=== PATIENT | female | born 1995 | race Caucasian/White ===

== ENCOUNTER 2017-06-30 11:04 | Emergency (ER) | payer BC ==
--- NOTE | 2017-06-30 12:31 | UC ---
Throat Pain/Nasal Lv HPI - HPI Summary HPI Summary: Pt c/o sore throat, bilateral ear pain, sinus pain, nasal congestion, and sore throat X 3-4 days. - History of Current Complaint Chief Complaint: UCRespiratory Stated Complaint: EAR ACHE/ST Time Seen by Provider: 06/30/17 12:15 Hx Obtained From: Patient Hx Last Menstrual Period: 06/26/17 ?: No Onset/Duration: Gradual Onset, Lasting Days - 4 Severity: Mild Associated Signs & Symptoms: Positive: Dysphagia, Sinus Discomfort - Epiglottits Risk Factors Epiglottis Risk Factors: Negative - Allergies/Home Medications Allergies/Adverse Reactions: Allergies Allergy/AdvReac Type Severity Reaction Status Date / Time Penicillins Allergy Rash Verified 06/30/17 12:16 Home Medications: Home Medications Cetirizine* [ZyrTEC 10 MG TAB*] 10 mg PO DAILY 06/30/17 [History Confirmed 06/30] Citalopram TAB* [Celexa TAB*] 40 mg PO DAILY 06/30/17 [History Confirmed ] LORazepam TAB(*) [Ativan 1 MG TAB (*)] 1 mg PO TID PRN 06/30/17 [History Confirmed 06/30/17] traZODone TAB* [Desyrel TAB*] 50 mg PO BEDTIME 06/30/17 [History Confirmed 06/30] PMH/Surg Hx/FS Hx/Imm Hx Previously Healthy: Yes - Surgical History Surgical History: Yes Surgery Procedure, Year, and Place: appendectomy. Ear tubes - Family History Known Family History: Positive: Cardiac Disease - Social History Occupation: Student Lives: With Family Alcohol Use: None Substance Use Type: None Smoking Status (MU): Never Smoked Tobacco Have You Smoked in the Last Year: No Review of Systems Constitutional: Fatigue Skin: Negative Eyes: Negative ENT: Sore Throat, Sinus Congestion Respiratory: Negative Cardiovascular: Negative Gastrointestinal: Negative Genitourinary: Negative Motor: Negative Neurovascular: Negative Musculoskeletal: Negative Neurological: Negative Psychological: Negative Is Patient Immunocompromised?: No All Other Systems Reviewed And Are Negative: Yes Physical Exam Triage Information Reviewed: Yes Appearance: Ill-Appearing Vital Signs: Initial Vital Signs Temp 98 F 06/30/17 12:13 Pulse 64 06/30/17 12:13 Resp 16 06/30/17 12:13 BP 119/71 06/30/17 12:13 Pulse Ox 100 06/30/17 12:13 Vital Signs Reviewed: Yes Eye Exam: Normal ENT Exam: Other ENT: Positive: Pharyngeal erythema, Nasal congestion, TM bulging, Tonsillar swelling Dental Exam: Normal Neck exam: Normal Respiratory Exam: Normal Cardiovascular Exam: Normal Musculoskeletal Exam: Normal Neurological Exam: Normal Psychological Exam: Normal Skin Exam: Normal Throat Pain/Nasal Course/Dx - Differential Dx/Diagnosis Differential Diagnosis/HQI/PQRI: Influenza, Otitis Media, Tonsillitis, URI Provider Diagnoses: tonsillitis. ear ache bilateral Discharge - Discharge Plan Condition: Stable Disposition: HOME Prescriptions: Azithromycin TAB* [Zithromax TAB (Z-DANY) 250 mg #6 tabs] 2 tab PO .TODAY, THEN 1 DAILY #1 dany Pseudoephedrine TAB* [Sudafed TAB*] 60 mg PO Q12H #14 tab Patient Education Materials: Upper Respiratory Infection (ED), Tonsillitis (ED) Referrals: No Primary Care Phys,NOPCP [Primary Care Provider] - If Needed
== END 2017-06-30 12:42 | disposition home or self-care (01) ==
LOC: UCCORT 11:04
DX: J03.90 Acute tonsillitis, unspecified (principal); H92.03 Otalgia, bilateral
CPT/HCPCS: 87651; 99202; G0463